=== PATIENT | female | born 1975 | race Caucasian/White ===

== ENCOUNTER 2018-05-07 19:41 | Emergency (ER) | payer OTHER ==
[~2018-05-07] VITALS: Ht 162.6 cm; Wt 65.8 kg
[2018-05-07 20:16] VITALS: Ht 162.6 cm; Wt 65.8 kg
[2018-05-07 22:08] VITALS: BP 143/87
== END 2018-05-07 22:08 | disposition home or self-care (01) ==
LOC: ED 19:41
DX: G89.29 Other chronic pain (principal); M54.5 Low back pain; J45.909 Unspecified asthma, uncomplicated; F41.9 Anxiety disorder, unspecified; M19.90 Unspecified osteoarthritis, unspecified site
CPT/HCPCS: J2270